=== PATIENT | female | born 1945 | race Caucasian/White ===

== ENCOUNTER 2022-08-17 09:30 | Emergency (ER) | payer MEDICARE, SELFPAY ==
[2022-08-17 09:32] VITALS: BP 179/93; PULSE 76; RESP 16; TEMP 36.7; O2SAT 96
--- NOTE | 2022-08-17 09:45 | DI.RAD_ITS ---
Exam(s) XR WRIST LT COMPLETE EXAM: XR WRIST LT COMPLETE CLINICAL HISTORY: fall, injury. TECHNIQUE: 2D digital imaging was performed. COMPARISON: No exams were available for comparison FINDINGS: 3 views There is a mildly impacted acute fracture of the distal radius. Fracture involves the radiocarpal kalyani int space. No significant ulnar variance. Scaphoid and scapholunate distance appear unremarkable. Small nonexpansile cyst is noted in the proximal scaphoid-navicular. IMPRESSION: Distal radius fracture as described above. Fracture line violates the radiocarpal joint space. DATA REPOSITORY: RADIATION DOSE DELIVERED:
[2022-08-17] MEDS: oxyCODONE 5 MG TAB PO (09:54)
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
== END 2022-08-17 11:00 | disposition home or self-care (01) ==
PROVIDERS: Emergency Provider Physician Assistant
DX: S52.572A Other intraarticular fracture of lower end of left radius, initial encounter for closed fracture (principal); W51.XXXA Accidental striking against or bumped into by another person, initial encounter
CPT/HCPCS: 29125; 99283; 73110; 99284

== ENCOUNTER 2022-08-22 10:52 | Outpatient (CLI) | payer MEDICARE, OTHER, SELFPAY ==
--- NOTE | 2022-08-22 11:00 | DI.RAD_ITS ---
Exam(s) XR WRIST LT LIMITED EXAM: XR WRIST LT LIMITED CLINICAL HISTORY: wrist fx f/u. TECHNIQUE: 2D digital imaging was performed. COMPARISON: CR XR WRIST LT COMPLETE from 08/17/2022 FINDINGS: Two views: Again noted is the previously described fracture site in the distal radius. Fracture lines violate t he radiocarpal joint, as best seen on the lateral view. There is no significant ulnar variance. No obvious fracture of the ulnar styloid. No obvious fracture of the scaphoid and scapholunate distance remains normal. IMPRESSION: Distal radius fracture again noted. Fracture line does violate the radiocarpal joint. DATA REPOSITORY: RADIATION DOSE DELIVERED:
== END 2022-08-22 10:53 | disposition home or self-care (01) ==
LOC: DIORS 10:53
PROVIDERS: PCP Nurse Practitioner; Referring Provider Nurse Practitioner; Visit Provider Student in an Organized Health Care Education/Training Program
DX: S52.502A Unspecified fracture of the lower end of left radius, initial encounter for closed fracture (principal); S52.602A Unspecified fracture of lower end of left ulna, initial encounter for closed fracture; W19.XXXA Unspecified fall, initial encounter; E11.9 Type 2 diabetes mellitus without complications; E66.01 Morbid (severe) obesity due to excess calories; Z68.41 Body mass index [BMI] 40.0-44.9, adult
CPT/HCPCS: 99203; 99213; 73100

== ENCOUNTER 2022-09-26 11:09 | Outpatient (CLI) | payer MEDICARE, OTHER, SELFPAY ==
--- NOTE | 2022-09-26 10:00 | DI.RAD_ITS ---
Exam(s) XR WRIST LT LIMITED EXAM: XR WRIST LT LIMITED INDICATION: F/U L DISTAL RADIUS FRACTURE. COMPARISON: CR XR WRIST LT LIMITED from 08/22/2022 TECHNIQUE: 2D digital imaging was performed. Two views. FINDINGS: There has been no change in the alignment of the distal radial fracture which shows increased callus formation when compared the previous exam. There is disuse osteopenia. DATA REPOSITORY: RADIATION DOSE DELIVERED:
== END 2022-09-26 11:10 | disposition home or self-care (01) ==
LOC: DIORS 11:09
PROVIDERS: PCP Nurse Practitioner; Referring Provider Nurse Practitioner; Visit Provider Student in an Organized Health Care Education/Training Program
DX: S52.502A Unspecified fracture of the lower end of left radius, initial encounter for closed fracture (principal); S52.602A Unspecified fracture of lower end of left ulna, initial encounter for closed fracture; X58.XXXA Exposure to other specified factors, initial encounter
CPT/HCPCS: 99213; 73100

== ENCOUNTER 2023-01-10 19:50 | Emergency (ER) | payer MEDICARE, SELFPAY ==
[2023-01-10 20:03] VITALS: BP 162/79; PULSE 89; RESP 16; TEMP 36.6; O2SAT 94
--- NOTE | 2023-01-10 20:15 | DI.RAD_ITS ---
Exam(s) XR FOOT RT COMPLETE EXAM: XR FOOT RT COMPLETE CLINICAL HISTORY: right great toe injury. TECHNIQUE: 2D digital imaging was performed. Three views. COMPARISON: No exams were available for comparison FINDINGS: BONES: There is a fracture at the base of the proximal phalanx of the 1st toe which is comminuted and involves the articular surface proximally. There is mild displacement. No additional fractures are identified. No bony destructive lesion is seen. JOINTS: No dislocation present. SOFT TISSUE: Swelling over dorsum of metatarsal region. IMPRESSION: Intra-articular fracture of the proximal portion of the proximal phalanx of the great toe. DATA REPOSITORY: RADIATION DOSE DELIVERED:
[2023-01-10] MEDS: Ibuprofen 400 MG TAB PO (22:02)
--- NOTE | 2023-01-10 22:19 | DI.VRAD_ITS ---
PROCEDURE INFORMATION: Exam: XR Right Foot Exam date and time: 01/10/2023 9:31 PM Age: 77 years old Clinical indication: Injury or trauma; Fall; Blunt trauma; Foot; Right TECHNIQUE: Imaging protocol: Radiologic exam of the right foot. Views: 3 or more views. COMPARISON: No relevant prior studies available. FINDINGS: Bones/joints: Marked diffuse osteopenia. Mildly displaced comminuted intra-articular fracture of the base of the 1st proximal phalanx. Moderate plantar calcaneal spur. Other bones and joints appear to be intact. Soft tissues: Moderate forefoot soft tissue swelling. No radiopaque foreign body or soft tissue gas. IMPRESSION: Mildly displaced comminuted intra-articular fracture of base of the great toe proximal phalanx. Dictated and Authenticated by: Antoine Tomlin MD. Ordering:CURTIS Araujo MD
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
== END 2023-01-10 22:11 | disposition home or self-care (01) ==
PROVIDERS: Emergency Provider Physician Assistant; PCP Nurse Practitioner
DX: S92.401A Displaced unspecified fracture of right great toe, initial encounter for closed fracture (principal); W22.09XA Striking against other stationary object, initial encounter
CPT/HCPCS: 29515; 99283; 73630; 99284

== ENCOUNTER 2023-01-18 10:10 | Outpatient (CLI) | payer MEDICARE, SELFPAY ==
--- NOTE | 2023-01-18 09:30 | DI.RAD_ITS ---
Exam(s) XR FOOT RT COMPLETE EXAM: XR FOOT RT COMPLETE CLINICAL HISTORY: RIGHT GREAT TOE FX. TECHNIQUE: 2D digital imaging was performed of the right foot. Three images were obtained. AP, obl ique and lateral views were obtained. COMPARISON: CR,XR XR FOOT RT COMPLETE from 01/10/2023 FINDINGS: BONES: There has been no change in alignment of the fracture involving the base of the proximal phala nx of the great toe. No new fractures identified. No bony destructive lesion is seen. There is a sp ur at the plantar surface of the calcaneus with adjacent soft tissue calcifications. This may be seq uelae of plantar fasciitis. JOINTS: No dislocation present. Mild degenerative changes are seen in the foot particularly at the ar ticulation between the navicular and the cuneiform [id number]. SOFT TISSUE: There is soft tissue swelling of the foot. IMPRESSION: Stable fracture of the proximal phalanx of the great toe. DATA REPOSITORY: RADIATION DOSE DELIVERED:
== END 2023-01-18 10:11 | disposition home or self-care (01) ==
LOC: DIORS 10:10
PROVIDERS: PCP Nurse Practitioner; Referring Provider Nurse Practitioner; Visit Provider Physician Assistant
DX: S92.401A Displaced unspecified fracture of right great toe, initial encounter for closed fracture; W22.09XA Striking against other stationary object, initial encounter
CPT/HCPCS: 99213; 73630

== ENCOUNTER 2023-02-01 10:26 | Outpatient (CLI) | payer MEDICARE, SELFPAY ==
--- NOTE | 2023-02-01 09:30 | DI.RAD_ITS ---
Exam(s) XR FOOT RT COMPLETE EXAM: XR FOOT RT COMPLETE CLINICAL HISTORY: f/u R GREAT TOE FX. TECHNIQUE: 2D digital imaging was performed. Three views. COMPARISON: CR XR FOOT RT COMPLETE from 01/18/2023 FINDINGS: BONES: There has been no change in the alignment of the comminuted fracture at the base of the proxim al phalanx of the great toe. No bony destructive lesion is seen. JOINTS: No dislocation present. SOFT TISSUE: Dorsal soft tissue swelling again noted. Plantar fascial calcification. Heel spur. IMPRESSION: Stable appearance of 1st proximal phalangeal fracture. DATA REPOSITORY: RADIATION DOSE DELIVERED:
== END 2023-02-01 10:27 | disposition home or self-care (01) ==
LOC: DIORS 10:27
PROVIDERS: PCP Nurse Practitioner; Referring Provider Nurse Practitioner; Visit Provider Physician Assistant
DX: S92.401D Displaced unspecified fracture of right great toe, subsequent encounter for fracture with routine healing; X58.XXXD Exposure to other specified factors, subsequent encounter
CPT/HCPCS: 99213; 73630

== ENCOUNTER 2024-08-21 19:45 | Outpatient (CLI) | payer MEDICARE, SELFPAY ==
--- NOTE | 2024-08-21 20:05 | DI.RAD_ITS ---
Exam(s) XR FOOT LT COMPLETE EXAM: XR FOOT LT COMPLETE CLINICAL HISTORY: Pain in Left foot ICD-10: M79.672. TECHNIQUE: 2D digital imaging was performed of the left foot. Three images were obtained. AP, obli que and lateral views were obtained. COMPARISON: There are no priors for comparison. FINDINGS: BONES: No acute fracture is present. No bony destructive lesion is seen. There is a small plantar rodriguez caneal spur. Bones are osteopenic. There is a bipartite medial sesamoid at the head of the 1st meta tarsal bone. JOINTS: No dislocation present. SOFT TISSUE: Dystrophic calcifications are seen in the soft tissues. There is soft tissue swelling o f the foot. No soft tissue gas is present. IMPRESSION: No definite acute fracture or dislocation. There is soft tissue swelling of the foot. If clinically appropriate a repeat examination in 7-10 days may be obtained to assess for evidence of healing occu lt fracture. DATA REPOSITORY: RADIATION DOSE DELIVERED:
--- NOTE | 2024-08-21 21:47 | DI.VRAD_ITS ---
PROCEDURE INFORMATION: Exam: XR Left Foot Exam date and time: 08/21/2024 7:58 PM Age: 79 years old Clinical indication: Patient HX: Left foot pain TECHNIQUE: Imaging protocol: Radiologic exam of the left foot. Views: 3 or more views. COMPARISON: No relevant prior studies available. FINDINGS: Bones/joints: Osteopenia. Osteopenia. There is mild irregularity of the lateral aspect of the proximal portion of 1 of the sesamoid bones which could signify sesamoid fracture in the appropriate clinical setting. Recommend correlation with history and for point tenderness. No osseous erosion or suspicious osseous lesion. Soft tissues: There is some calcification of the plantar aponeurosis. IMPRESSION: There is mild irregularity of the lateral aspect of the proximal portion of 1 of the sesamoid bones which could signify sesamoid fracture in the appropriate clinical setting. Recommend correlation with history and for point tenderness. Dictated and Authenticated by: Tirso Meyer MD. Ordering:URSZULA Pichardo MD
== END 2024-08-21 20:05 ==
PROVIDERS: PCP Nurse Practitioner; Visit Provider Physician Assistant Medical
DX: M79.672 Pain in left foot (principal)
CPT/HCPCS: 73630